=== PATIENT | male | born 1985 | race African-American/Black ===

== ENCOUNTER 2017-08-24 22:59 | Emergency (ER) | payer SELFPAY ==
[~2017-08-24] VITALS: Ht 172.7 cm; Wt 126.3 kg
[~2017-08-24 22:59] MED LIST: AMOXICILLIN500 M1 PO; MOTRIN800 MG PO; NAPROSYN500 MG PO
[2017-08-24 23:19] VITALS: BP 142/94
[2017-08-24 23:56] LABS: HEMATOCRIT 48.2 % (38.0-50.0); HEMOGLOBIN 15.8 G/DL (12.5-16.6); MCH 26.8 PG (29.0-34.0); MCHC 32.8 G/DL (30.0-36.0); MCV 81.8 FL (86-99); PLATELET COUNT 184 K/uL (156-360); RBC DIS.WIDTH-SD 45.4 % (39-53); RED BLOOD COUNT 5.89 M/uL (4.00-5.50); WHITE BLOOD COUNT 4.3 K/uL (4.1-10.2)
[2017-08-25 00:11] LABS: CHLORIDE 101 mEq/L (99-109); POTASSIUM 4.1 mEq/L (3.7-5.4); SODIUM 138 mEq/L (136-147)
[2017-08-25 00:12] LABS: GLUCOSE 87 mg/dL (70-99)
[2017-08-25 00:16] LABS: GFR ESTIMATE (CALCULATED) > 59 mL/min/ (58.99-99999)
[2017-08-25 00:17] LABS: UREA NITROGEN (BUN) 10 mg/dL (9-23)
[2017-08-25 00:50] LABS: TROP-I INTERPRETATION NEGATIVE; TROPONIN-I < 0.01 ng/mL (0.0-0.30)
== END 2017-08-25 03:07 | disposition left against medical advice (07) ==
LOC: EME 22:59
DX: R06.02 Shortness of breath (principal); N23 Unspecified renal colic; L75.0 Bromhidrosis; Z53.21 Procedure and treatment not carried out due to patient leaving prior to being seen by health care provider
CPT/HCPCS: 71046; 80048; 84484; 85027

== ENCOUNTER 2017-08-25 08:55 | Emergency (ER) | payer SELFPAY ==
[~2017-08-25] VITALS: Ht 172.7 cm; Wt 125.3 kg
[2017-08-25 09:33] LABS: HEMATOCRIT 48.2 % (38.0-50.0); MCH 26.8 PG (29.0-34.0); MCHC 33.2 G/DL (30.0-36.0); MCV 80.6 FL (86-99); PLATELET COUNT 172 K/uL (156-360); RBC DIS.WIDTH-CV 14.9 % (11.8-14.6); RBC DIS.WIDTH-SD 43.7 % (39-53); RED BLOOD COUNT 5.98 M/uL (4.00-5.50); WHITE BLOOD COUNT 4.1 K/uL (4.1-10.2)
[2017-08-25 09:55] LABS: TROP-I INTERPRETATION NEGATIVE; TROPONIN-I 0.01 ng/mL (0.0-0.30)
[2017-08-25 10:10] LABS: CHLORIDE 99 MEQ/L (99-109); POTASSIUM 4.2 MEQ/L (3.7-5.4); SODIUM 133 MEQ/L (136-147); TOTAL BILIRUBIN 0.6 MG/DL (0.0-1.0)
[2017-08-25 10:28] LABS: ALKALINE PHOSPHATASE 61 IU/L (3-129); CREATININE 0.8 MG/DL (0.6-1.3); GFR ESTIMATE (CALCULATED) > 59 mL/min/ (58.99-99999); GLUCOSE 89 mg/dL (70-99); LIPASE 17 U/L (1.0-51.0); TOTAL PROTEIN 7.2 G/DL (6.4-8.3); UREA NITROGEN (BUN) 9 mg/dL (9-23)
[2017-08-25 10:30] LABS: ALT (GPT) 2159 IU/L (3-49); AST (GOT) 2010 IU/L (2-34)
[2017-08-25 11:17] LABS: INTER. NORMALIZED RATIO 1.3
[2017-08-25 11:20] LABS: PTT 35.7 SEC (25-37)
[2017-08-25 11:47] LABS: MONOSPOT (MONONUCLEOSIS SEROL) NEGATIVE
[2017-08-25 11:49] LABS: ACETAMINOPHEN (TYLENOL) < 10 MCG/ML (10-30); SALICYLATE 13.6 MG/DL (15-30); SERUM ETHYL ALCOHOL < 10 mg/dL
[2017-08-25 13:51] LABS: HEPATITIS B SURFACE ANTIGEN Nonreactive
[2017-08-25 13:52] LABS: HEPATITIS C ANTIBODY Nonreactive
[2017-08-25 13:53] LABS: ANTI-HEPATITIS B CORE (IGM) Nonreactive
[2017-08-25 14:02] LABS: ANTI-HEPATITIS A VIRUS (IGM) REACTIVE
[2017-08-25 16:56] VITALS: BP 134/78
== END 2017-08-25 16:57 | disposition home or self-care (01) ==
LOC: EME 08:55
PROVIDERS: Physician Assistant
DX: B15.9 Hepatitis A without hepatic coma (principal); R06.02 Shortness of breath; K76.0 Fatty (change of) liver, not elsewhere classified; Z82.49 Family history of ischemic heart disease and other diseases of the circulatory system; F17.200 Nicotine dependence, unspecified, uncomplicated
CPT/HCPCS: 71046; 71275; 74176; 74177; 76705; 80053; 80074; 81003; 83690; 84484; 85027; 85379; 85610; 85730; 86308; 86645 90; 86708 90; 93005; 99281; 99285; G0480; J1885; J7030